=== PATIENT | male | born 1990 | race Two or more races ===

== ENCOUNTER 2018-12-17 08:23 | Emergency (ER) | payer OTHER ==
[~2018-12-17] VITALS: Ht 170.2 cm; Wt 65.0 kg
[2018-12-17] MEDS ORDERED: LORAZEPAM 0.5MG TABLET PO ONE (09:00)
[2018-12-17 10:36] VITALS: BP 113/71
== END 2018-12-17 10:40 | disposition home or self-care (01) ==
LOC: ER 08:23
DX: R07.9 Chest pain, unspecified (principal); R00.2 Palpitations; R42 Dizziness and giddiness; F45.8 Other somatoform disorders
CPT/HCPCS: 71045; 93005; 99283